=== PATIENT | female | born 1995 | race Hispanic/Latino ===

== ENCOUNTER 2020-01-19 09:27 | Emergency (ER) | payer SELFPAY ==
[2020-01-19 10:21] LABS: Absolute Lymphocytes (CBC) 2.5 K/uL (0.7-4.9); Basophils % 0.5 % (0-1.3); Hematocrit 40.2 % (36.0-45.0); Lymphocytes % 24.7 % (15.3-44.8); MPV 9.2 fL (7.6-11.3); RBC Red Blood Cell Count 4.75 M/uL (3.86-4.86)
[2020-01-19 10:34] LABS: ALT/SGPT 28 U/L (12-78); AST/SGOT 15 U/L (15-37); Albumin 3.6 g/dL (3.4-5.0); Alkaline Phosphatase 134 U/L (45-117); BUN Blood Urea Nitrogen 12 mg/dL (7-18); Bicarbonate 28 mmol/L (21-32); Bilirubin Direct 0.1 mg/dL (0-0.2); Bilirubin Total 0.3 mg/dL (0.2-1.0); Glucose Level 98 mg/dL (74-106); Lipase 97 U/L (73-393); Potassium 3.7 mmol/L (3.5-5.1); Sodium Level 138 mmol/L (136-145)
[2020-01-19 10:37] LABS: Urine Blood TRACE (NEG); Urine Glucose NEGATIVE (NEG); Urine Protein NEGATIVE (NEG); Urine Specific Gravity 1.025 (1.005-1.030)
--- NOTE | 2020-01-19 11:07 | RAD REPORT ---
EXAM DESCRIPTION: CT - Abdomen Pelvis W Contrast - 01/19/2020 10:56 am CLINICAL HISTORY: ABD PAIN, patient details abdominal pain, right-sided breast pain with lump, histo ry of ovarian cyst COMPARISON: No comparisons TECHNIQUE: Biphasic, helical CT imaging of the abdomen and pelvis was performed following 100 ml non -ionic IV contrast. No oral contrast administered. All CT scans are performed using dose optimization technique as appropriate and may include automated exposure control or mA/KV adjustment according to patient size. FINDINGS: No suspicious findings in the lung bases. No cardiomegaly or pericardial effusion. The suri ast tissue is not imaged and no assessment can be made of the patient provided history of breast pain and lump. No focal liver abnormality. Attenuation is borderline for fatty infiltration. No nodularity of the ca psule. No splenic abnormality. No pancreatic or peripancreatic abnormality seen. Gallbladder is contr acted. No biliary tree dilatation. Gallstones can be occult. Active gallbladder process is not suspec tino. Symmetric renal function is seen with no hydronephrosis or suspicious renal mass. No pyelonephritis o r acute parenchymal process. No bladder abnormalities. No adrenal abnormalities. Uterine size is norm al. Nabothian cysts are present. No suspicious ovarian or adnexal finding. No dilated bowel loops or bowel wall thickening. Appendix is normal. No free air, free fluid or infla mmatory stranding. No hernia, mass or bulky lymphadenopathy. No suspicious bony findings. IMPRESSION: Contrast enhanced CT abdomen and pelvis showing no significant or suspicious finding. Nonacute findings are detailed in the body of the report.
--- NOTE | 2020-01-19 11:15 | EDPHYS ---
Physician Documentation [facility] Name: Ashley Badillo Age: 24 yrs Sex: Female : 1995 Arrival Date: 01/19/2020 Time: 09:[address] Private MD: ED Physician Abhi Fernando HPI: 01/19 10:19 This 24 yrs old Female presents to ER via Ambulatory with complaints of Breast kb Problem, Abdominal Pain. 10:19 The patient presents with abdominal pain. Onset: The symptoms/episode began/occurred kb last night. The symptoms do not radiate. Associated signs and symptoms: none. The symptoms are described as constant. Modifying factors: The symptoms are alleviated by nothing, the symptoms are aggravated by nothing. Severity of pain: At its worst the pain was moderate in the emergency department the pain is unchanged. The patient has experienced a previous episode. The patient has not recently seen a physician. Pt reports lower abd pain that started last night and pain to right breast that started a week ago. States she has had the abd pain in the past due to cysts. Reports history of PCOS.. 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 - Coronavirus screen:: The patient has NOT traveled to [place] in the past 14 days. Proceed with normal triage process as indicated. The patient has NOT had contact with known/suspected case of Coronavirus? Proceed with normal triage procedures. - Social history:: Smoking status: Patient denies any tobacco usage or history of. - Ebola Screening: : No symptoms or risks identified at this time. ROS: 10:18 Constitutional: Negative for fever, chills, and weight loss, ENT: Negative for injury, kb pain, and discharge, Neck: Negative for injury, pain, and swelling, Cardiovascular: Negative for chest pain, palpitations, and edema. Reports pain to right breast at 9 o'clock Respiratory: Negative for shortness of breath, cough, wheezing, and pleuritic chest pain, Back: Negative for injury and pain, MS/Extremity: Negative for injury and deformity, Skin: Negative for injury, rash, and discoloration, Neuro: Negative for headache, weakness, numbness, tingling, and seizure. 10:18 Abdomen/GI: Positive for abdominal pain. Exam: 10:18 Constitutional: This is a well developed, well nourished patient who is awake, alert, kb and in no acute distress. Head/Face: Normocephalic, atraumatic. ENT: Nares patent. No nasal discharge, no septal abnormalities noted. Tympanic membranes are normal and external auditory canals are clear. Oropharynx with no redness, swelling, or masses, exudates, or evidence of obstruction, uvula midline. Mucous membranes moist. Neck: Trachea midline, no thyromegaly or masses palpated, and no cervical lymphadenopathy. Supple, full range of motion without nuchal rigidity, or vertebral point tenderness. No Meningismus. Cardiovascular: Regular rate and rhythm with a normal S1 and S2. No gallops, murmurs, or rubs. Normal PMI, no JVD. No pulse deficits. Respiratory: Lungs have equal breath sounds bilaterally, clear to auscultation and percussion. No rales, rhonchi or wheezes noted. No increased work of breathing, no retractions or nasal flaring. Back: No spinal tenderness. No costovertebral tenderness. Full range of motion. Skin: Warm, dry with normal turgor. Normal color with no rashes, no lesions, and no evidence of cellulitis. MS/ Extremity: Pulses equal, no cyanosis. Neurovascular intact. Full, normal range of motion. Neuro: Awake and alert, GCS 15, oriented to person, place, time, and situation. Cranial nerves II-XII grossly intact. Motor strength 5/5 in all extremities. Sensory grossly intact. Cerebellar exam normal. Normal gait. 10:18 Chest/axilla: Breasts: cellulitis, is not appreciated, swelling, is not appreciated, tenderness, that is moderate, of the right breast. 10:18 Abdomen/GI: Inspection: abdomen appears normal, Bowel sounds: normal, in all quadrants, Palpation: soft, in all quadrants, moderate abdominal tenderness, in all quadrants. Vital Signs: 09:39 BP 134 / 89; Pulse 103; Resp 18; Temp 98.7; Pulse Ox 100% ; Weight 86.18 kg; Height 4 sv ft. 11 in. (149.86 cm); Pain 8/10; 10:30 BP 111 / 74; Pulse 101; Resp 18; Temp 98.8; Pulse Ox 100% on R/A; Pain 8/10; em 09:39 Body Mass Index 38.37 (86.18 kg, 149.86 cm) sv MDM: 09:39 Patient medically screened. kb 10:17 Data reviewed: vital signs, nurses notes. Data interpreted: Pulse oximetry: on room air kb is 100 %. Interpretation: normal. 11:14 Counseling: I had a detailed discussion with the patient and/or guardian regarding: the kb historical points, exam findings, and any diagnostic results supporting the discharge/admit diagnosis, lab results, radiology results, the need for outpatient follow up, a family practitioner, to return to the emergency department if symptoms worsen or persist or if there are any questions or concerns that arise at home. ED course: Pt educated to follow up with POLYSOMNOGRAPHIC TECHNICIAN for breast pain. . 01/19 09:51 Order name: Basic Metabolic Panel; Complete Time: 10:37 kb 01/19 09:51 Order name: CBC with Diff; Complete Time: 10:38 kb 01/19 09:51 Order name: Hepatic Function; Complete Time: 10:37 kb 01/19 09:51 Order name: Lipase; Complete Time: 10:37 kb 01/19 10:19 Order name: Urine Dipstick--Ancillary (enter results); Complete Time: 10:39 bd 01/19 10:19 Order name: Urine --Ancillary (enter results); Complete Time: 10:39 bd 01/19 09:51 Order name: IV Saline Lock; Complete Time: 10:16 kb 01/19 09:51 Order name: Labs collected and sent; Complete Time: 10:16 kb 01/19 10:38 Order name: CT Abd/Pelvis - IV Contrast Only; Complete Time: 11:13 kb Administered Medications: 11:28 Drug: TORadol - Ketorolac 15 mg Route: IVP; Site: left antecubital; em Disposition: 01/20 06:48 Co-signature as Attending Physician, Abhi Fernando MD I agree with the assessment and kdr plan of care. Disposition: 01/19/20 11:15 Discharged to Home. Impression: Generalized abdominal pain. - Condition is Stable. - Discharge Instructions: Abdominal Pain, Adult, [id number]. - Prescriptions for Diclofenac Sodium 75 mg Oral Tablet, Delayed Release (E.C.) - take 1 tablet by ORAL route 2 times per day As needed; 30 tablet. - Medication Reconciliation Form, Thank You Letter, Antibiotic Education, Prescription Opioid Use form. - Follow up: Emergency Department; When: As needed; Reason: Worsening of condition. Follow up: Private Physician; When: 2 - 3 days; Reason: Recheck today's complaints, Continuance of care, Re-evaluation by your physician. Signatures: Dispatcher [employer] EDAlthea Vaz, LAMAR-Lynette NEWTON-Katie Womack, RN RN Abhi Fernando MD MD [facility] Tuan Valdivia RN RN em Corrections: (The following items were deleted from the chart) 01/19 11:38 11:15 01/19/2020 11:15 Discharged to Home. Impression: Generalized abdominal pain. em Condition is Stable. Forms are Medication Reconciliation Form, Thank You Letter, Antibiotic Education, Prescription Opioid Use. Follow up: Emergency Department; When: As needed; Reason: Worsening of condition. Follow up: Private Physician; When: 2 - 3 days; Reason: Recheck today's complaints, Continuance of care, Re-evaluation by your physician. kb
--- NOTE | 2020-01-19 11:15 | ER ---
Nurse's Notes [facility] Name: Ashley Badillo Age: 24 yrs Sex: Female : 1995 Arrival Date: 01/19/2020 Time: 09:[address] Private MD: Diagnosis: Generalized abdominal pain Presentation: 01/19 09:37 Presenting complaint: Patient states: "I've been having sharp pains in my right breast sv and I felt a lump. I'm also having pains in my stomach." (points to lower abd). c/o dizziness, reports falling last night after being lightheaded. Also reports that they told her she has ovarian cysts but isn't sure if they came back. Transition of care: patient was not received from another setting of care. Onset of symptoms is unknown. Risk Assessment: Do you want to hurt yourself or someone else? Patient reports no desire to harm self or others. Initial Sepsis Screen: Does the patient meet any 2 criteria? No. Patient's initial sepsis screen is negative. Does the patient have a suspected source of infection? No. Patient's initial sepsis screen is negative. Care prior to arrival: None. 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 - Coronavirus screen:: The patient has NOT traveled to [place] in the past 14 days. Proceed with normal triage process as indicated. The patient has NOT had contact with known/suspected case of Coronavirus? Proceed with normal triage procedures. - Social history:: Smoking status: Patient denies any tobacco usage or history of. - Ebola Screening: : No symptoms or risks identified at this time. Screenin:51 Abuse screen: Denies threats or abuse. Nutritional screening: No deficits noted. em Tuberculosis screening: No symptoms or risk factors identified. Fall Risk None identified. Assessment: 10:00 General: Appears in no apparent distress. comfortable, Behavior is calm, cooperative, em Denies fever. Pain: Complains of pain in abdomen Pain currently is 8 out of 10 on a pain scale. Pain began 1 day ago. Neuro: Level of Consciousness is awake, alert, obeys commands, Oriented to person, place, time, situation, Appropriate for age. Cardiovascular: Capillary refill < 3 seconds Patient's skin is warm and dry. Respiratory: Airway is patent Respiratory effort is even, unlabored, Respiratory pattern is regular, symmetrical. GI: Abdomen is flat, Bowel sounds present X 4 quads. Abd is soft X 4 quads Abdomen is tender to palpation in right upper quadrant, left upper quadrant, right lower quadrant and left lower quadrant. Derm: Skin is intact, is healthy with good turgor, Skin is pink, warm \\T\\ dry. Musculoskeletal: Capillary refill < 3 seconds, Range of motion: intact in all extremities. 10:52 Reassessment: wheeled to CT via wheelchair. em Vital Signs: 09:39 BP 134 / 89; Pulse 103; Resp 18; Temp 98.7; Pulse Ox 100% ; Weight 86.18 kg; Height 4 sv ft. 11 in. (149.86 cm); Pain 8/10; 10:30 BP 111 / 74; Pulse 101; Resp 18; Temp 98.8; Pulse Ox 100% on R/A; Pain 8/10; em 09:39 Body Mass Index 38.37 (86.18 kg, 149.86 cm) sv ED Course: 09:34 Patient arrived in ED. mr 09:36 Althea Donato FNP-C is [facility]. kb 09:36 Abhi Fernando MD is Attending Physician. kb 09:38 Triage completed. sv 09:39 Arm band placed on. sv 09:43 Tuan Valdivia, RN is Primary Nurse. em 09:51 Patient has correct armband on for positive identification. Placed in gown. Bed in low em position. Call light in reach. Adult w/ patient. Pulse ox on. NIBP on. 10:00 Initial lab(s) drawn, by me, sent to lab. Inserted saline lock: 20 gauge in left em antecubital area, using aseptic technique. Blood collected. 10:57 CT Abd/Pelvis - IV Contrast Only In Process Unspecified. EDMS 11:37 No provider procedures requiring assistance completed. IV discontinued, intact, em bleeding controlled, No redness/swelling at site. Pressure dressing applied. Administered Medications: 11:28 Drug: TORadol - Ketorolac 15 mg Route: IVP; Site: left antecubital; em Outcome: 11:15 Discharge ordered by MD. hernandez 11:37 Discharged to home ambulatory. em 11:37 Condition: good 11:37 Discharge instructions given to patient, Instructed on discharge instructions, follow up and referral plans. medication usage, Demonstrated understanding of instructions, follow-up care, medications, Prescriptions given X 1. 11:38 Patient left the ED. em Signatures: Dispatcher [employer] Althea Soler, PATRICA NEWTON-Katie Womack, RN RN Adelaide Reyes Edgar, RN RN em
[2020-01-19] MEDS ORDERED: KETOROLAC 30 MG/ML INJ ONE (11:28)
[2020-01-19 11:44] VITALS: O2SAT 100
[2020-01-19 11:46] VITALS: BP 111/74; TEMP 98.8
== END 2020-01-19 11:38 | disposition home or self-care (01) ==
LOC: ER 09:27
DX: R10.84 Generalized abdominal pain (principal); N64.4 Mastodynia
CPT/HCPCS: 36415; 74177; 80048; 80076; 81003; 81025; 83690; 85025; 96374; 99284; Q9967